=== PATIENT | female | born 1985 | race African-American/Black ===

== ENCOUNTER 2017-05-27 12:23 | Day surgery (SDC) | payer OTHER, MEDICAID ==
[2017-05-27] MEDS ORDERED: FENTAnyl 50 MCG/ML VIAL ×2 (16:06→17:58)
[2017-05-27] MEDS ORDERED: MIDAZOLAM 1 MG/ML 2 ML INJ (16:06)
[2017-05-27] MEDS: LIDOCAINE 1% (MPF) 30 ML INJ (16:31)
[2017-05-27] MEDS ORDERED: morphine 10 MG INJ (16:39)
[2017-05-27] MEDS ORDERED: CEFAZOLIN 1 GM INJ (17:49)
[2017-05-27] MEDS ORDERED: PROPOFOL 20 ML (17:49)
[2017-05-27] MEDS ORDERED: ONDANSETRON 4 MG INJ (17:49)
[2017-05-27] MEDS ORDERED: LIDOCAINE 2% (SDV) 5 ML INJ (17:49)
[2017-05-27] MEDS ORDERED: MEPERIDINE 25 MG INJ IV (18:00)
[2017-05-27] MEDS ORDERED: DIPHENHYDRAMINE 50 MG INJ IV (18:00)
[2017-05-27] MEDS ORDERED: HYDROmorphONE (0.2 MG/ML) 10ML SYG IV (18:00)
[2017-05-27] MEDS ORDERED: ONDANSETRON 4 MG INJ IV (18:00)
[2017-05-27] MEDS: METOCLOPRAMIDE 10 MG INJ IV (18:33)
[2017-05-27] MEDS: FENTAnyl 50 MCG/ML VIAL IV (18:33)
[2017-05-27] MEDS: HYDROmorphONE (0.2 MG/ML) 10ML SYG IV (18:34)
== END 2017-05-27 19:24 | disposition home or self-care (01) ==
LOC: SDS 12:23
DX: S64.02XA Injury of ulnar nerve at wrist and hand level of left arm, initial encounter (principal); X58.XXXA Exposure to other specified factors, initial encounter; E66.9 Obesity, unspecified; Z68.32 Body mass index [BMI] 32.0-32.9, adult
CPT/HCPCS: 64836